=== PATIENT | female | born 1975 | race Caucasian/White ===

== ENCOUNTER → 2017-01-30 | Outpatient (CLI) | payer BC ==
[~2017-01-30] VITALS: Ht 177.8 cm; Wt 77.2 kg
[~2017-01-30] MED LIST: CYMBALTA 60MG60 MG PO; NORFLEX 10100 MG/TAB PO; PERCODAN PO; SENOKOT8.6 MG PO; VITAMIN D31 LIQ; VITAMIN D31000 I1 PO; WELLBUTRIN XL300 M1 PO; ZANTAC 150MG T150 MG PO
[2017-01-30 12:11] VITALS: BP 132/80; PULSE 84
[2017-01-30 13:24] VITALS: BP 125/88; PULSE 77
== END ==
LOC: COL.RAD 11:46
DX: M54.2 Cervicalgia (principal)
CPT/HCPCS: J1100

== ENCOUNTER → 2017-12-04 | Outpatient (CLI) | payer BC | LOC: COL.RAD 12:31 | DX: R07.0 Pain in throat (principal) ==